=== PATIENT | male | born 1975 | race Caucasian/White ===

== ENCOUNTER 2017-06-27 05:20 | Inpatient (IN) | payer MEDICAID ==
[~2017-06-27] VITALS: Ht 177.8 cm; Wt 78.1 kg
[2017-06-27] VITALS (20 sets, daily range): BP systolic 102–152; BP diastolic 59–93
[2017-06-27 06:32] LABS: HEMATOCRIT. 43.3 % (42.0-52.0); HEMOGLOBIN. 14.7 g/dL (14.0-18.0); LYMPHOCYTES % 51.3 % (20.0-50.0); MEAN CORPUSCULAR HEMOGLOBIN 34.9 pg (28.0-32.0); MEAN CORPUSCULAR VOLUME 103.1 fL (80.0-94.0); MEAN PLATELET VOLUME 7.6 fl (7.4-10.4); MONOCYTES % 12.4 % (2.0-8.0); NEUTROPHILS % 31.3 % (40.0-76.0); PLATELET 294 x1000/uL (130-400); RED CELL DISTRIBUTION WIDTH 12.1 % (11.6-14.6)
[2017-06-27 06:45] LABS: INR 1.1; PARTIAL THROMBOPLASTIN TIME 27.9 sec (23.4-31.0); PROTHROMBIN TIME 11.2 sec (9.4-11.6)
[2017-06-27 06:51] LABS: CARBON DIOXIDE 33 mEq/L (21-32); CHLORIDE 103 mEq/L (98-107)
[2017-06-27 06:57] LABS: CLARITY URINE CLEAR (CLEAR); COLOR URINE YELLOW (YELLOW); KETONES URINE NEGATIVE (NEGATIVE); LEUKOCYTE ESTERASE URINE NEGATIVE (NEGATIVE); NITRITE URINE NEGATIVE (NEGATIVE); OCCULT BLOOD URINE NEGATIVE (NEGATIVE); PH URINE 5.5 (4.5-8.0); PROTEIN URINE NEGATIVE (NEGATIVE)
[2017-06-27] MEDS ORDERED: LIDOCAINE 1%/EPI 1:200,000 10 ML VIAL IJ ONE (07:56)
[2017-06-27] MEDS ORDERED: GELATIN SPONGE,ABSORBABLE SZ 100 ONE (07:56)
[2017-06-27] MEDS ORDERED: POVIDONE-IODINE OINT 28.4GM TOP ONE (07:57)
[2017-06-27] MEDS ORDERED: BACITRACIN ZINC 15GM TUBE TOP ONE (07:57)
[2017-06-27] MEDS ORDERED: THROMBIN (BOVINE) 5000 UNITS/VIAL TOP ONE (07:57)
[2017-06-27] MEDS ORDERED: BACITRACIN 50,000 UNITS/VIAL ONE (07:58)
[2017-06-27] MEDS ORDERED: NORMAL SALINE 0.9% 10 ML SYR ONE (07:58)
[2017-06-27] MEDS ORDERED: LACTATED RINGERS 1,000 ML IV SCH (08:00)
[2017-06-27] MEDS ORDERED: FENTANYL CITRATE/PF 50MCG/ML 2ML VIAL ONE ×2 (12:08→13:34)
[2017-06-27] MEDS ORDERED: MIDAZOLAM HCL 2 MG/2 ML VIAL ONE (12:08)
[2017-06-27] MEDS ORDERED: HYDROMORPHONE HCL/PF 2MG/ML (OR) ONE ×2 (12:32→14:07)
[2017-06-27] MEDS ORDERED: PROPOFOL 200MG/20ML VIAL IV ONE ×2 (13:05→14:10)
[2017-06-27] MEDS ORDERED: LABETALOL 5MG/ML SYR 20 MG/4 ML SYRINGE IV ONE (13:39)
[2017-06-27] MEDS ORDERED: DIPHENHYDRAMINE 50MG/ML VIAL IV PRN (14:00)
[2017-06-27] MEDS ORDERED: CEFAZOLIN SODIUM 1000MG/VIAL IV SCH (14:00)
[2017-06-27] MEDS ORDERED: IPRATROPIUM/ALBUTEROL 0.5-3(2.5)MG/3ML NEB INH PRN (14:00)
[2017-06-27] MEDS ORDERED: ONDANSETRON HCL 4MG/2ML VIAL IV PRN (14:00)
[2017-06-27] MEDS ORDERED: ACETAMINOPHEN 325MG TABLET PO PRN (14:00)
[2017-06-27] MEDS ORDERED: SODIUM CHLORIDE 0.9% 10ML VIAL ONE (14:03)
[2017-06-27] MEDS ORDERED: NICARDIPINE 100 MG in SODIUM CHLORIDE 0.9% 60 ML IV PRN (15:00)
[2017-06-27] MEDS ORDERED: DIPHENHYDRAMINE INJ IV PRN (15:15)
[2017-06-27] MEDS ORDERED: ONDANSETRON INJ IV PRN (15:15)
[2017-06-27] MEDS ORDERED: HYDROMORPHONE PCA 10MG/50ML IV PRN (15:15)
[2017-06-27] MEDS ORDERED: NALOXONE INJ IV PRN (15:15)
[2017-06-27] MEDS: DEXT 5%/LACTATED RINGERS 1,000 ML IV SCH (15:36)
[2017-06-27] MEDS ORDERED: TRAZ-129 PO (15:42)
[2017-06-27] MEDS ORDERED: ESCI5TAB PO (15:42)
[2017-06-27] MEDS ORDERED: HYDR-4005 PO (15:42)
[2017-06-27] MEDS ORDERED: DEXAMETHASONE 10 MG/ML VIAL IV NR (17:30)
[2017-06-27] MEDS: CEFAZOLIN 1000MG PREMIX 50 ML IV SCH (17:44)
[2017-06-27] MEDS: DEXAMETHASONE 4MG/ML 1ML VIAL IV SCH (18:36)
[2017-06-27] MEDS: MORPHINE SULFATE 2 MG/ML CPJ (NOT FOR IM USE) IV PRN ×2 (20:34→23:22)
[2017-06-28] VITALS (31 sets, daily range): BP systolic 101–126; BP diastolic 53–80
[2017-06-28] MEDS: CEFAZOLIN 1000MG PREMIX 50 ML IV SCH ×2 (01:01→08:27)
[2017-06-28] MEDS: DEXAMETHASONE 4MG/ML 1ML VIAL IV SCH ×5 (01:01→23:22)
[2017-06-28] MEDS: DEXT 5%/LACTATED RINGERS 1,000 ML IV SCH (01:01)
[2017-06-28] MEDS: MORPHINE SULFATE 2 MG/ML CPJ (NOT FOR IM USE) IV PRN ×7 (02:01→23:26)
[2017-06-28 05:48] LABS: HEMATOCRIT. 41.2 % (42.0-52.0); HEMOGLOBIN. 13.7 g/dL (14.0-18.0); MEAN CORPUSCULAR HEMOGLOBIN 35.2 pg (28.0-32.0); MEAN CORPUSCULAR VOLUME 105.5 fL (80.0-94.0); MEAN PLATELET VOLUME 8.4 fl (7.4-10.4); PLATELET 319 x1000/uL (130-400)
[2017-06-28 06:06] LABS: CARBON DIOXIDE 31 mEq/L (21-32); CHLORIDE 102 mEq/L (98-107)
[2017-06-28] MEDS ORDERED: OMEPRAZOLE 20MG CAPSULE EXTENDED RELEASE PO NR (08:30)
[2017-06-28] MEDS ORDERED: HYDROCODONE/ACETAMINOPHEN 5/325MG TABLET PO PRN (08:30)
[2017-06-28] MEDS ORDERED: BISACODYL 5MG TABLET PO PRN (08:30)
[2017-06-28] MEDS: HYDROCODONE/ACETAMINOPHEN 10/325MG TABLET PO PRN ×4 (08:53→22:13)
[2017-06-28] MEDS: DOCUSATE SODIUM 250MG CAPSULE PO SCH (08:53)
[2017-06-28 11:54] LABS: PLATELET ESTIMATE NORMAL
[2017-06-29] VITALS (17 sets, daily range): BP systolic 107–123; BP diastolic 58–86
[2017-06-29] MEDS: MORPHINE SULFATE 2 MG/ML CPJ (NOT FOR IM USE) IV PRN ×2 (02:25→08:27)
[2017-06-29 05:41] LABS: HEMATOCRIT. 39.5 % (42.0-52.0); HEMOGLOBIN. 13.2 g/dL (14.0-18.0); MEAN CORPUSCULAR HEMOGLOBIN 35.2 pg (28.0-32.0); MEAN CORPUSCULAR VOLUME 105.1 fL (80.0-94.0); MEAN PLATELET VOLUME 8.6 fl (7.4-10.4); PLATELET 282 x1000/uL (130-400); RED BLOOD CELL COUNT 3.76 mill/uL (4.7-6.1)
[2017-06-29] MEDS: DEXAMETHASONE 4MG/ML 1ML VIAL IV SCH (06:23)
[2017-06-29 06:30] LABS: CARBON DIOXIDE 28 mEq/L (21-32); CHLORIDE 105 mEq/L (98-107)
[2017-06-29] MEDS: HYDROCODONE/ACETAMINOPHEN 10/325MG TABLET PO PRN ×2 (06:30→10:41)
[2017-06-29] MEDS ORDERED: OMEPRAZOLE 20MG CAPSULE EXTENDED RELEASE PO SCH (06:30)
[2017-06-29 07:33] LABS: PLATELET ESTIMATE NORMAL
[2017-06-29] MEDS: DOCUSATE SODIUM 250MG CAPSULE PO SCH (08:26)
[2017-06-29] MEDS ORDERED: CITALOPRAM HYDROBROMIDE 10MG TABLET PO SCH (09:00)
[2017-06-29] MEDS ORDERED: NON FORMULARY PATIENT HOME MED EA PO SCH (09:00)
== END 2017-06-29 11:45 | disposition home or self-care (01) | DRG 321 ==
LOC: OR 05:20 → MICUSO 05:21
PROVIDERS: ADMIT Internal Medicine; ATTEND Internal Medicine
PROC: 0RG2070 Fusion of 2 or more Cervical Vertebral Joints with Autologous Tissue Substitute, Anterior Approach, Anterior Column, Open Approach (ICD-10-PCS; 2017-06-27)
PROC: 0RB30ZZ Excision of Cervical Vertebral Disc, Open Approach (ICD-10-PCS; principal; 2017-06-27 10:30)
DX: M50.122 Cervical disc disorder at C5-C6 level with radiculopathy (principal); G82.50 Quadriplegia, unspecified; M47.12 Other spondylosis with myelopathy, cervical region; E83.51 Hypocalcemia; M48.02 Spinal stenosis, cervical region; M50.123 Cervical disc disorder at C6-C7 level with radiculopathy; T38.0X5A Adverse effect of glucocorticoids and synthetic analogues, initial encounter; D72.829 Elevated white blood cell count, unspecified; F41.9 Anxiety disorder, unspecified; G89.4 Chronic pain syndrome; Z79.899 Other long term (current) drug therapy; Z87.891 Personal history of nicotine dependence; Y92.89 Other specified places as the place of occurrence of the external cause; Z88.0 Allergy status to penicillin; Z88.8 Allergy status to other drugs, medicaments and biological substances
CPT/HCPCS: 36415; 71010; 72040; 72141; 80048; 81003; 83735; 85025; 85610; 85730; 86850; 86900; 88304; 88311; 93005; 97116; 97162; 97535; A4216; J0690; J1100; J1170; J2250; J2270; J2704; J3010; J3490; J7120; J7121

== ENCOUNTER 2018-04-24 07:00 | Inpatient (IN) | payer MEDICAID ==
[~2018-04-24] VITALS: Ht 177.8 cm; Wt 74.8 kg
[~2018-04-24 07:00] MED LIST: HYDR-4005 PO
[2018-04-24] MEDS ORDERED: LACTATED RINGERS 1,000 ML IV SCH (09:15)
[2018-04-24] MEDS ORDERED: GELATIN SPONGE,COMPRESSED SZ 100 ONE (09:22)
[2018-04-24] MEDS ORDERED: BACITRACIN 50,000 UNITS/VIAL ONE (09:22)
[2018-04-24] MEDS ORDERED: THROMBIN (BOVINE) 5000 UNITS/VIAL TOP ONE (09:22)
[2018-04-24] MEDS ORDERED: LIDOCAINE HCL/EPINEPHRINE 1%-EPI 1:100,000 20 ML VIAL ONE (09:22)
[2018-04-24] MEDS ORDERED: NORMAL SALINE 0.9% 10 ML SYR ONE (09:22)
[2018-04-24 09:29] LABS: BASOPHILS % 0.5 % (0.0-2.0); EOSINOPHILS % 1.6 % (0.0-5.0); HEMATOCRIT. 44.3 % (42.0-52.0); HEMOGLOBIN. 15.3 g/dL (14.0-18.0); LYMPHOCYTES % 18.6 % (20.0-50.0); MEAN CORPUSCULAR HEMOGLOBIN 35.3 pg (28.0-32.0); MEAN CORPUSCULAR VOLUME 102.2 fL (80.0-94.0); MEAN PLATELET VOLUME 7.4 fl (7.4-10.4); MONOCYTES % 11.2 % (2.0-8.0); NEUTROPHILS % 68.1 % (40.0-76.0); PLATELET 269 x1000/uL (130-400); RED BLOOD CELL COUNT 4.34 mill/uL (4.7-6.1)
[2018-04-24 09:32] LABS: CHLORIDE 105 mEq/L (98-107)
[2018-04-24 09:33] LABS: CLARITY URINE CLEAR (CLEAR); COLOR URINE YELLOW (YELLOW); KETONES URINE NEGATIVE (NEGATIVE); LEUKOCYTE ESTERASE URINE NEGATIVE (NEGATIVE); NITRITE URINE NEGATIVE (NEGATIVE); OCCULT BLOOD URINE NEGATIVE (NEGATIVE); PH URINE 6.5 (4.5-8.0); PROTEIN URINE NEGATIVE (NEGATIVE); SPECIFIC GRAVITY URINE 1.017 (1.005-1.030); UROBILINOGEN URINE 0.2 E.U./dL (0.2-1.0)
[2018-04-24 09:39] LABS: INR 1.1; PARTIAL THROMBOPLASTIN TIME 28.2 sec (23.4-31.0); PROTHROMBIN TIME 10.9 sec (9.1-11.1)
[2018-04-24] MEDS ORDERED: PROPOFOL 200MG/20ML VIAL IV ONE (10:36)
[2018-04-24] MEDS ORDERED: MIDAZOLAM HCL 2 MG/2 ML VIAL ONE (10:36)
[2018-04-24] MEDS ORDERED: FENTANYL CITRATE/PF 50MCG/ML 5ML VIAL ONE (10:36)
[2018-04-24] MEDS ORDERED: NEOSTIGMINE METHYLSULFATE 1MG/ML 10 ML VIAL ONE (10:36)
[2018-04-24] MEDS ORDERED: ROCURONIUM BROMIDE 10MG/ML VIAL 5ML IV ONE ×2 (10:36→11:59)
[2018-04-24] MEDS ORDERED: ONDANSETRON HCL 4MG/2ML INJ ONE (10:37)
[2018-04-24] MEDS ORDERED: SUCCINYLCHOLINE CHLORIDE 200MG/10ML IV ONE (10:37)
[2018-04-24] MEDS ORDERED: CEFAZOLIN SODIUM 1000MG/VIAL ONE (10:37)
[2018-04-24] MEDS ORDERED: METOCLOPRAMIDE HCL 10MG/2ML VIAL ONE (10:37)
[2018-04-24] MEDS ORDERED: GLYCOPYRROLATE 0.2 MG/ML 2ML VIAL ONE (10:37)
[2018-04-24] MEDS ORDERED: PHENYLEPHRINE HCL 10 MG/ML 1ML (IV VIAL) IV ONE (10:37)
[2018-04-24] MEDS ORDERED: PROPOFOL 10MG/ML 100ML 100 ML IV ONE ×2 (11:52→12:59)
[2018-04-24] MEDS ORDERED: KETOROLAC 30MG/ML VIAL ONE (11:52)
[2018-04-24] MEDS ORDERED: VECURONIUM BROMIDE 10 MG/VIAL IV ONE (12:59)
[2018-04-24] MEDS ORDERED: ONDANSETRON INJ IV PRN (13:30)
[2018-04-24] MEDS ORDERED: FENTANYL CITRATE/PF 50MCG/ML 2ML VIAL IV PRN (13:30)
[2018-04-24] MEDS ORDERED: MORPHINE SULFATE 4 MG/ML CPJ (NOT FOR IM USE) IV PRN (13:30)
[2018-04-24] MEDS ORDERED: ONDANSETRON HCL 4MG/2ML INJ IV PRN ×2 (13:30→13:45)
[2018-04-24] MEDS ORDERED: NALOXONE INJ IV PRN (13:30)
[2018-04-24] MEDS ORDERED: MORPHINE PCA 50MG/50ML IV PRN (13:30)
[2018-04-24] MEDS ORDERED: MEPERIDINE HCL/PF 25MG/ML CPJ IV PRN (13:30)
[2018-04-24] MEDS ORDERED: DIPHENHYDRAMINE INJ IV PRN (13:30)
[2018-04-24] MEDS ORDERED: CLONIDINE 0.1MG TABLET PO PRN (13:45)
[2018-04-24] MEDS ORDERED: IPRATROPIUM/ALBUTEROL 0.5-3(2.5)MG/3ML NEB INH PRN (13:45)
[2018-04-24] MEDS ORDERED: CEFAZOLIN SODIUM 1000MG/VIAL IV SCH (14:00)
[2018-04-24] MEDS: HYDROMORPHONE HCL/PF 2MG/ML CPJ IV PRN ×2 (15:21→15:31)
[2018-04-24 16:00] VITALS: BP 101/62
[2018-04-24 16:09] VITALS: BP 101/62
[2018-04-24] MEDS: CEFAZOLIN 1000MG PREMIX 50 ML IV SCH (17:40)
[2018-04-24 20:00] VITALS: BP 100/65
[2018-04-24] MEDS: ACETAMINOPHEN 325MG TABLET PO PRN (22:38)
[2018-04-24] MEDS: DEXT 5%/LACTATED RINGERS 1,000 ML IV SCH (22:38)
[2018-04-25] VITALS: BP 103/67
[2018-04-25] MEDS: CEFAZOLIN 1000MG PREMIX 50 ML IV SCH ×3 (02:11→17:59)
[2018-04-25 04:00] VITALS: BP 105/57
[2018-04-25] MEDS: ACETAMINOPHEN 325MG TABLET PO PRN ×2 (06:00→15:09)
[2018-04-25 06:43] LABS: BASOPHILS % 0.2 % (0.0-2.0); EOSINOPHILS % 1.4 % (0.0-5.0); HEMATOCRIT. 39.3 % (42.0-52.0); HEMOGLOBIN. 13.6 g/dL (14.0-18.0); LYMPHOCYTES % 24.8 % (20.0-50.0); MEAN CORPUSCULAR HEMOGLOBIN 35.8 pg (28.0-32.0); MEAN CORPUSCULAR VOLUME 103.1 fL (80.0-94.0); MEAN PLATELET VOLUME 7.8 fl (7.4-10.4); MONOCYTES % 14.5 % (2.0-8.0); NEUTROPHILS % 59.1 % (40.0-76.0); PLATELET 248 x1000/uL (130-400); RED BLOOD CELL COUNT 3.81 mill/uL (4.7-6.1); RED CELL DISTRIBUTION WIDTH 12.1 % (11.6-14.6)
[2018-04-25 08:00] VITALS: BP 113/63
[2018-04-25] MEDS: HYDROMORPHONE HCL/PF 2MG/ML CPJ IM PRN ×5 (08:44→22:18)
[2018-04-25] MEDS: DEXT 5%/LACTATED RINGERS 1,000 ML IV SCH ×2 (08:49→21:36)
[2018-04-25 09:18] LABS: CHLORIDE 107 mEq/L (98-107)
[2018-04-25 11:49] VITALS: BP 104/65
[2018-04-25] MEDS: HYDROCODONE/ACETAMINOPHEN 10/325MG TABLET PO PRN ×2 (13:50→20:47)
[2018-04-25 16:00] VITALS: BP 103/43
[2018-04-25 20:00] VITALS: BP 100/48
[2018-04-26] VITALS: BP 98/49
[2018-04-26] MEDS: CEFAZOLIN 1000MG PREMIX 50 ML IV SCH ×2 (02:03→10:02)
[2018-04-26] MEDS: HYDROMORPHONE HCL/PF 2MG/ML CPJ IM PRN ×7 (02:10→21:56)
[2018-04-26 04:30] VITALS: BP 102/53
[2018-04-26] MEDS: HYDROCODONE/ACETAMINOPHEN 10/325MG TABLET PO PRN ×3 (07:27→23:27)
[2018-04-26 07:35] LABS: HEMATOCRIT. 38.6 % (42.0-52.0); HEMOGLOBIN. 13.3 g/dL (14.0-18.0); MEAN CORPUSCULAR HEMOGLOBIN 35.4 pg (28.0-32.0); MEAN CORPUSCULAR VOLUME 102.7 fL (80.0-94.0); MEAN PLATELET VOLUME 7.9 fl (7.4-10.4); PLATELET 243 x1000/uL (130-400); RED BLOOD CELL COUNT 3.75 mill/uL (4.7-6.1); RED CELL DISTRIBUTION WIDTH 11.9 % (11.6-14.6)
[2018-04-26 08:00] VITALS: BP 111/59
[2018-04-26 08:10] LABS: CHLORIDE 104 mEq/L (98-107)
[2018-04-26] MEDS: DEXT 5%/LACTATED RINGERS 1,000 ML IV SCH ×2 (09:09→16:31)
[2018-04-26 12:00] VITALS: BP 101/59
[2018-04-26 12:33] LABS: PLATELET ESTIMATE NORMAL
[2018-04-26] MEDS ORDERED: POLYETHYLENE GLYCOL 3350 (17GM) 1 DOSE PACK PO NR (13:45)
[2018-04-26] MEDS: DOCUSATE SODIUM 100MG CAPSULE PO SCH (13:47)
[2018-04-26 16:00] VITALS: BP 108/59
[2018-04-26] MEDS: ACETAMINOPHEN 325MG TABLET PO PRN (16:27)
[2018-04-26 20:00] VITALS: BP 112/74
[2018-04-27] VITALS: BP 141/80
[2018-04-27] MEDS: HYDROMORPHONE HCL/PF 2MG/ML CPJ IM PRN ×3 (00:58→08:20)
[2018-04-27] MEDS: DEXT 5%/LACTATED RINGERS 1,000 ML IV SCH (01:45)
[2018-04-27 03:55] VITALS: BP 113/66
[2018-04-27 04:00] VITALS: BP 96/48
[2018-04-27] MEDS: HYDROCODONE/ACETAMINOPHEN 10/325MG TABLET PO PRN ×2 (06:05→10:34)
[2018-04-27 06:31] LABS: BASOPHILS % 0.5 % (0.0-2.0); EOSINOPHILS % 3.2 % (0.0-5.0); HEMATOCRIT. 36.5 % (42.0-52.0); HEMOGLOBIN. 12.7 g/dL (14.0-18.0); LYMPHOCYTES % 21.1 % (20.0-50.0); MEAN CORPUSCULAR HEMOGLOBIN 35.7 pg (28.0-32.0); MEAN CORPUSCULAR VOLUME 102.9 fL (80.0-94.0); MEAN PLATELET VOLUME 7.9 fl (7.4-10.4); MONOCYTES % 13.7 % (2.0-8.0); NEUTROPHILS % 61.5 % (40.0-76.0); PLATELET 257 x1000/uL (130-400); RED BLOOD CELL COUNT 3.55 mill/uL (4.7-6.1); RED CELL DISTRIBUTION WIDTH 11.8 % (11.6-14.6)
[2018-04-27 07:11] LABS: CHLORIDE 103 mEq/L (98-107)
[2018-04-27 08:00] VITALS: BP 103/58
[2018-04-27] MEDS: DOCUSATE SODIUM 100MG CAPSULE PO SCH (08:20)
[2018-04-27] MEDS ORDERED: DOCU-138 PO (10:16)
[2018-04-27 12:11] VITALS: BP 103/60
== END 2018-04-27 12:35 | disposition home or self-care (01) | DRG 304 ==
LOC: ORIP 07:56 → 6EST 16:37
PROVIDERS: ADMIT Internal Medicine; ATTEND Internal Medicine
PROC: 0SG30K1 Fusion of Lumbosacral Joint with Nonautologous Tissue Substitute, Posterior Approach, Posterior Column, Open Approach (ICD-10-PCS; 2018-04-24)
PROC: 0ST40ZZ Resection of Lumbosacral Disc, Open Approach (ICD-10-PCS; 2018-04-24)
PROC: 0SG3071 Fusion of Lumbosacral Joint with Autologous Tissue Substitute, Posterior Approach, Posterior Column, Open Approach (ICD-10-PCS; principal; 2018-04-24 10:00)
DX: M48.061 Spinal stenosis, lumbar region without neurogenic claudication (principal); G82.50 Quadriplegia, unspecified; M47.12 Other spondylosis with myelopathy, cervical region; M48.02 Spinal stenosis, cervical region; E83.51 Hypocalcemia; M51.16 Intervertebral disc disorders with radiculopathy, lumbar region; M47.817 Spondylosis without myelopathy or radiculopathy, lumbosacral region; M47.26 Other spondylosis with radiculopathy, lumbar region; D72.829 Elevated white blood cell count, unspecified; Z98.1 Arthrodesis status; Z88.0 Allergy status to penicillin; Z88.8 Allergy status to other drugs, medicaments and biological substances; Z88.6 Allergy status to analgesic agent
CPT/HCPCS: 36415; 71045; 72100; 80048; 81003; 85025; 85610; 85730; 86850; 86900; 88304; 88311; 93005; 95863; 95925; 95926; 95928; 95929; 97116; 97162; 97166; 97530; 97535; A4216; C1713; J0330; J0690; J1170; J1885; J2175; J2250; J2270; J2370; J2405; J2704; J2710; J2765; J3010; J3490; J7120

== ENCOUNTER 2020-06-16 13:16 | Emergency (ER) | payer MEDICAID ==
[~2020-06-16] VITALS: Ht 177.8 cm; Wt 75.0 kg
[2020-06-16] MEDS: KETOROLAC 60MG/2ML VIAL IM ONE ×2 (14:45→16:26)
[2020-06-16] MEDS ORDERED: KETOROLAC 30MG/ML VIAL IM NR (16:30)
[2020-06-16 19:15] VITALS: BP 145/87
== END 2020-06-16 19:16 | disposition home or self-care (01) ==
LOC: ER 13:16
DX: M54.2 Cervicalgia (principal); R51.9 Headache, unspecified; G89.11 Acute pain due to trauma; Y04.2XXA Assault by strike against or bumped into by another person, initial encounter; Y93.89 Activity, other specified; Y92.89 Other specified places as the place of occurrence of the external cause
CPT/HCPCS: 70450; 72125; 96372; 99285; J1885